=== PATIENT | female | born 1995 ===

== ENCOUNTER 2022-10-05 13:12 | Emergency (ER) | payer SELFPAY | END 2022-10-05 16:48 | disposition home or self-care (01) | LOC: ERS 13:12 | DX: H66.91 Otitis media, unspecified, right ear (principal) | CPT/HCPCS: 99282 ==

== ENCOUNTER 2023-03-17 20:35 | Emergency (ER) | payer SELFPAY ==
[2023-03-17] MEDS ORDERED: Morphine 4 MG/ML VIAL ONE (22:22)
== END 2023-03-17 22:55 | disposition home or self-care (01) ==
LOC: ERS 20:36
DX: M54.41 Lumbago with sciatica, right side (principal)
CPT/HCPCS: 96372; 99283; J2270